=== PATIENT | female | born 2000 | race Two or more races ===

== ENCOUNTER → 2025-08-22 | Outpatient (CLI) | payer BC, SELFPAY ==
--- NOTE | 2025-08-22 14:31 | EKG_ITS ---
[facility] Test Date: 2025-08-22 Pat Name: JANETH FONSECA Department: Room: - Gender: Female [employer]: STUDENT : 2000 Requested By: Ariadne Steven Order Number: [id number] Reading MD: Ariadne Steven Measurements Intervals [place] Rate: 73 P: 33 ND: 122 QRS: 40 QRSD: 89 T: 31 QT: 382 QTc: 422 Interpretive Statements SINUS RHYTHM No previous ECG available for comparison /[id number]
== END | disposition home or self-care (01) ==
LOC: SEKG 14:23
PROVIDERS: PCP Registered Nurse; Referring Provider Registered Nurse; Visit Provider Registered Nurse
DX: R07.9 Chest pain, unspecified (principal); R00.2 Palpitations
CPT/HCPCS: 93005